=== PATIENT | female | born 1990 | race Caucasian/White ===

== ENCOUNTER 2017-03-30 11:10 | Observation (INO) | payer BC, MEDICAID ==
[~2017-03-30 11:10] MED LIST: DEXAMETHASONE SOD PHOSPHATE INJ 4 MG/1 ML VIAL ONE; GLYCOPYRROLATE INJ 0.4 MG/2 ML VIAL ONE; KETOROLAC TROMETHAMINE 60 MG/2 ML SDV ONE; LIDOCAINE 2% INJ-PF (20 MG/ML) 10 ML AMPUL ONE; NEOSTIGMINE METHYLSULFATE 10 MG/10 ML VIAL ONE; ROCURONIUM BROMIDE INJ 50 MG/5 ML VIAL IV ONE; SUCCINYLCHOLINE CHLORIDE INJ 200 MG/10 ML VIAL ONE
[2017-03-30 12:05] LABS: APPEARANCE,URINE CLEAR; BILIRUBIN,URINE NEGATIVE (NEGATIVE); GLUCOSE, URINE NEGATIVE (NEGATIVE); KETONES,URINE NEGATIVE (NEGATIVE); LEUKOCYTE ESTERASE,URINE NEGATIVE (NEGATIVE); NITRITE,URINE NEGATIVE (NEGATIVE); PROTEIN,URINE NEGATIVE (NEGATIVE); URINE SPECIFIC GRAVITY 1.012; UROBILINOGEN,URINE NEGATIVE mg/dL (<2.0)
[2017-03-30 13:59] LABS: CHLAM PCR NOT DETECTED (NOT DETECT)
--- NOTE | 2017-03-30 14:12 | RADIOLOGY REPORT (SQ) ---
EXAM DESCRIPTION: U/S OB TRANSVAGINAL W/O DOP COMPLETED DATE/TIME: 03/30/2017 1:26 pm REASON FOR STUDY: and bleeding, pelvic pain COMPARISON: None. TECHNIQUE: Transvaginal static and realtime grayscale images acquired of the pelvis. Additional gwen cted spectral and color Doppler images recorded. All images stored on PACs. bHCG: Not available. LIMITATIONS: None. FINDINGS: FETUS: No intrauterine gestation is identified. There is an irregular echogenic area per ipherally in the right ovary the size of which would suggest a gestational 5 weeks 6 days. UTERUS: No masses. No anomalies. CERVICAL LENGTH: Not measured. Closed. RIGHT ADNEXA: There is an 11 x 9 mm thick-walled structure adjacent to the right ovary with what appe ars to represent a pole within it. No adnexal free fluid. No adnexal masses. LEFT ADNEXA: Not identified. No adnexal free fluid. No adnexal masses. FREE FLUID: None. OTHER: No other significant finding. IMPRESSION: 1. There is no intrauterine gestation. 2. There is a structure associated with the right ovary that may represent ectopic of abou t 5 weeks 6 days gestation. TECHNICAL DOCUMENTATION: JOB ID: [id number] [employer]- All Rights Reserved
--- NOTE | 2017-03-30 14:53 | ER Document Report ---
ED GI/ - General Chief Complaint: Abdominal Pain Stated Complaint: ABDOMINAL PAIN Time Seen by Provider: 03/30/17 11:30 Mode of Arrival: Ambulatory Information source: Patient Notes: Patient is a 26-year-old approximately 6 weeks who presents to the ER today for lower pelvic pain. Patient reports some bleeding that began today,That she thinks is in her urine, She states she noticed on the toilet paper. Patient denies any blood clots. The pain is worse on the right side.she denies any abnormal vaginal discharge, fever, chills. TRAVEL OUTSIDE OF THE [place] IN LAST 30 DAYS: No - Related Data Allergies/Adverse Reactions: amoxicillin [Amoxicillin] Allergy (Intermediate, Verified 03/30/17 11:14) Urticaria Penicillins Allergy (Intermediate, Verified 03/30/17 11:14) Urticaria Home Medications: Current Home Medications Doxylamine Succinate/Vit B6 [Diclegis Dr 10-10 mg Tablet] 1 each PO DAILY [History] Vit/Iron Fum/Folic AC [ Tablet] 1 each PO DAILY 03/30/17 [ History] Past Medical History - General Information source: Patient - Social History Smoking Status: Never Smoker Chew tobacco use (# tins/day): No Frequency of alcohol use: None Drug Abuse: None Renal/ Medical History: Reports: Hx Kidney Stones. Denies: Hx Peritoneal Dialysis Surgical Hx: Negative - Immunizations Hx Diphtheria, Pertussis, Tetanus Vaccination: Yes Review of Systems - Review of Systems Constitutional: No symptoms reported EENT: No symptoms reported Cardiovascular: No symptoms reported Respiratory: No symptoms reported Gastrointestinal: No symptoms reported Genitourinary: No symptoms reported Female Genitourinary: See HPI Musculoskeletal: No symptoms reported Skin: No symptoms reported Hematologic/Lymphatic: No symptoms reported Neurological/Psychological: No symptoms reported Physical Exam - Vital signs Vitals: Temp Pulse Resp BP Pulse Ox 99.5 F 104 H 18 144/80 H 100 03/30/17 11:14 03/30/17 11:14 03/30/17 11:14 03/30/17 11:14 03/30/17 11:14 - Notes Notes: PHYSICAL EXAMINATION: GENERAL: Well-appearing and in no acute distress. HEAD: Atraumatic, normocephalic. EYES: Pupils equal round and reactive to light, extraocular movements intact, sclera anicteric, conjunctiva are normal. NECK: Normal range of motion, supple without lymphadenopathy LUNGS: CTAB and equal. No wheezes rales or rhonchi. HEART: Regular rate and rhythm without murmurs ABDOMEN: Soft, mild right lower quadrant, suprapubic tenderness. No guarding, no rebound BACK: no vertebral tenderness, normal ROM GI/: no CVA tenderness pelvic: white discharge in vaginal canal, no bleeding, closed cervix EXTREMITIES: Normal range of motion, no pitting edema. No cyanosis. NEUROLOGICAL: Cranial nerves grossly intact. Normal sensory/motor exams. PSYCH: Normal mood, normal affect. SKIN: Warm, Dry, normal turgor, no rashes or lesions noted Course - Re-evaluation Re-evalutation: 03/30/17 14:51 Transvaginal ultrasound reports a gestation with a pole noted at outside the right adnexa, likely ectopic, Dr. Resendiz, DIRECTOR OF [employer] on-call has come down and evaluated the patient and patient has opted for surgery today. HCG was over 4000. 03/30/17 14:52 - Vital Signs Vital signs: Temp Pulse Resp BP Pulse Ox 99.5 F 104 H 18 144/80 H 100 03/30/17 11:14 03/30/17 11:14 03/30/17 11:14 03/30/17 11:14 03/30/17 11:14 - Laboratory Result Diagrams: 03/30/17 15:19 03/30/17 15:19 Laboratory results interpreted by me: 03/30/17 03/30/17 03/30/17 11:39 13:20 15:19 WBC 11.4 H Absolute Neutrophils 8.5 H Carbon Dioxide Creatinine Beta HCG, Quant 4796.10 H Urine Blood MODERATE H Urine HCG, Qual POSITIVE H 03/30/17 15:19 WBC Absolute Neutrophils Carbon Dioxide 21 L Creatinine 0.50 L Beta HCG, Quant Urine Blood Urine HCG, Qual Critical Care Note - Critical Care Note Total time excluding time spent on procedures (mins): 37 - 37 minutes spent in critical care time with patient, consulted with attending, speaking with family , placing orders and evaluating tests and labs. Discharge - Discharge Clinical Impression: Ectopic without intrauterine Qualifiers: Location of ectopic : unspecified location Qualified Code(s): O00.90 - Unspecified ectopic without intrauterine Condition: Stable Disposition: ADMITTED INPATIENT Admitting Provider: [facility] Admitted: OR
[2017-03-30] MEDS ORDERED: FENTANYL CITRATE INJ/PF 100 MCG/2 ML AMPUL ONE ×2 (15:25→15:26)
[2017-03-30] MEDS ORDERED: MIDAZOLAM 2 MG/2 ML INJ ONE (15:26)
[2017-03-30] MEDS ORDERED: PROPOFOL INJ 200 MG/20 ML VIAL IV ONE (15:27)
[2017-03-30] MEDS ORDERED: HYDROMORPHONE HCL INJ/PF 2 MG/ML AMPULE ONE ×2 (15:27→17:57)
[2017-03-30 15:32] LABS: ABSOLUTE BASOPHILS # (AUTO) 0.1 10^3/uL (0.0-0.2); ABSOLUTE EOSINOPHILS # (AUTO) 0.1 10^3/uL (0.0-0.6); ABSOLUTE LYMPHOCYTES (AUTO) 2.2 10^3/uL (0.5-4.7); ABSOLUTE MONOCYTES (AUTO) 0.5 10^3/uL (0.1-1.4); ABSOLUTE NEUT (AUTO) 8.5 10^3/uL (1.7-8.2); BASOPHILS % (AUTO) 0.6 % (0-2); EOSINOPHILS % (AUTO) 0.6 % (0-6); HEMATOCRIT 43.6 % (36.0-47.0); HGB HCT DIFFERENCE 1.4; LYMPHOCYTES % (AUTO) 19.6 % (13-45); MEAN CORPUSCULAR HEMOGLOBIN 30.1 pg (27.0-33.4); MEAN CORPUSCULAR HGB CONC 34.4 g/dL (32.0-36.0); MEAN CORPUSCULAR VOLUME 88 fl (80-97); MONOCYTES % (AUTO) 4.6 % (3-13); RED BLOOD COUNT 4.97 10^6/uL (3.72-5.28); RED CELL DISTRIBUTION WIDTH 12.4 % (11.5-14.0); SEGMENTED NEUTROPHILS % (AUTO) 74.6 % (42-78); WHITE BLOOD COUNT 11.4 10^3/uL (4.0-10.5)
[2017-03-30] MEDS ORDERED: BUPIVACAINE HCL 0.25 % INJ/PF (2.5 MG/1 ML) 30 ML VIAL ONE (15:38)
[2017-03-30 15:55] LABS: ALANINE AMINOTRANSFERASE 30 U/L (9-52); ALBUMIN 4.3 g/dL (3.5-5.0); ALKALINE PHOSPHATASE 76 U/L (38-126); ANION GAP 11 (5-19); ASPARTATE AMINO TRANSFERASE 19 U/L (14-36); BILIRUBIN,DIRECT 0.3 mg/dL (0.0-0.4); BILIRUBIN,TOTAL 0.6 mg/dL (0.2-1.3); BLOOD UREA NITROGEN 8 mg/dL (7-20); CALCIUM 9.5 mg/dL (8.4-10.2); CARBON DIOXIDE 21 mmol/L (22-30); CHLORIDE 107 mmol/L (98-107); GLUCOSE 91 mg/dL (75-110); SODIUM 138.8 mmol/L (137-145); TOTAL PROTEIN 7.3 g/dL (6.3-8.2)
[2017-03-30] MEDS ORDERED: CEFAZOLIN INJ 1 GM VIAL ONE (15:58)
[2017-03-30] MEDS ORDERED: MEPERIDINE HCL/PF INJ 25 MG/1 ML DISP.SYRIN IV PRN (16:45)
[2017-03-30] MEDS ORDERED: PROMETHAZINE HCL INJ 25 MG/1 ML VIAL IV PRN (16:45)
[2017-03-30] MEDS ORDERED: DIPHENHYDRAMINE HCL 50 MG/ML VIAL IV PRN (16:45)
[2017-03-30] MEDS ORDERED: FENTANYL CITRATE INJ/PF 100 MCG/2 ML AMPUL IV PRN ×3 (16:45)
[2017-03-30] MEDS ORDERED: MORPHINE SULFATE 10 MG/ML INJ IV PRN (16:45)
[2017-03-30] MEDS ORDERED: ACETAMINOPHEN 100 ML IV ONE (17:29)
[2017-03-30] MEDS: FENTANYL CITRATE INJ/PF 100 MCG/2 ML AMPUL ONE ×2 (17:30→17:35)
[2017-03-30] MEDS ORDERED: OXYCODONE-ACETAMINOPHEN 5-325 MG TABLET PO PRN (18:02)
[2017-03-30] MEDS ORDERED: ONDANSETRON HCL INJ/PF 4 MG/2 ML SDV IV PRN (18:03)
[2017-03-30] MEDS ORDERED: DIPHENHYDRAMINE HCL 50 MG/ML VIAL ONE (18:08)
[2017-03-30] MEDS: DOXYCYCLINE HYCLATE 100 MG TABLET PO SCH (21:34)
[2017-03-30] MEDS: IBUPROFEN 800 MG TABLET PO PRN (21:35)
[2017-03-31] MEDS: RINGERS SOLUTION,LACTATED 1,000 ML IV PRN ×2 (01:43→09:40)
[2017-03-31] MEDS ORDERED: OXYCODONE-ACETAMINOPHEN 5-325 MG TABLET ONE (01:43)
[2017-03-31] MEDS ORDERED: OXYCODONE-ACETAMINOPHEN 5-325 MG TABLET PO ONE (01:45)
[2017-03-31] MEDS: OXYCODONE-ACETAMINOPHEN 5-325 MG TABLET PO PRN ×2 (07:30→16:22)
[2017-03-31] MEDS: IBUPROFEN 800 MG TABLET PO PRN (07:31)
[2017-03-31] MEDS ORDERED: SENNOSIDES/DOCUSATE 8.6-50 MG 1 EACH TABLET PO SCH (10:00)
[2017-03-31] MEDS: DOXYCYCLINE HYCLATE 100 MG TABLET PO SCH (11:25)
--- NOTE | 2017-03-31 14:31 | OPERATIVE REPORT E ---
Operative Report NAME: SRINIVAS TINOCO : 1990 AGE: 26Y DATE OF SURGERY: 03/30/2017 ROOM: 212 PREOPERATIVE DIAGNOSIS: Ectopic . POSTOPERATIVE DIAGNOSIS: Suspected failed intrauterine ; no evidence of ectopic. OPERATION: Diagnostic laparoscopy with D and C. SURGEON: BASHIR POTTER M.D. ANESTHESIA: General endotracheal. INTRAOPERATIVE CONSULT: With Dr. Osborn. ESTIMATED BLOOD LOSS: 5 mL. TISSUE REMOVED OR ALTERED: Specimen to pathology: Endometrial curettings. FINDINGS: Normal-appearing fallopian tubes bilaterally. The right ovary had what appeared to be a corpus luteum cyst. However, it appeared to have a slightly yellowish hue and did not appear to be an ovarian ectopic. There was a small amount of tissue in the uterine cavity. The cervix had been closed at the onset of surgery. DESCRIPTION OF PROCEDURE: After discussing risks, benefits, and alternatives of the procedure and obtaining informed consent, the patient was taken to the operating room where general anesthesia was achieved. Right arm was tucked, and she was positioned in the dorsal lithotomy position. She was prepped and draped in a standard fashion. Bladder was drained via in-and-out catheterization. Speculum was placed in the vagina and a Hulka uterine manipulator placed. Next, attention was turned to the patient's abdomen. The inferior aspect of the umbilicus was grasped with Allis's and injected with 0.25% Marcaine for local anesthesia. A 10 mm skin incision was made. A Garrick 10 mm trocar was placed and the balloon on that inflated to help maintain pneumoperitoneum. The abdomen was insufflated, and the patient was placed in Trendelenburg. A right lower quadrant trocar was placed after pre-medicating the trocar site with 0.25% Marcaine. This was a 5 mm trocar, and it was placed under direct visualization. The pelvis was surveyed with the findings noted. There had been expected to be a right adnexal ectopic, and when this was not evident, the ultrasound was reviewed and Dr. Osborn called to the OR. In the meantime, I de-sulfated the abdomen and removed the Hulka tenaculum. The speculum was placed, and cervix was serially dilated to allow for passage of a small curette. Endometrial cavity was curetted until it felt clean. The specimen will be sent for pathology. The speculum was removed after placing the Hulka uterine manipulator. Attention was turned back to the abdomen. The abdomen was insufflated and the patient again placed in Trendelenburg. The abdomen was again surveyed and again no ectopic noted. The decision was made to follow the patient on observation status postoperatively and repeat quantitative hCG in the morning. The right lower quadrant trocar was removed under direct visualization. The abdomen was de-sulfated and the umbilical port removed. The umbilical fascial site was closed with #0-Vicryl in an interrupted fashion. The skin incisions were closed with 3-0 Monocryl in a subcuticular fashion. An OpSite was placed over the umbilical incision and Dermabond over the right lower quadrant incision. The Hulka uterine manipulator was removed, and the patient was taken out of dorsal lithotomy. She was awakened from anesthesia and taken to recovery in stable condition. All sponge, needle, lap, and instrument counts were correct x2. DICTATING PHYSICIAN: BASHIR POTTER M.D. [id number] PHY#: [id number] ID: [id number] JOB#: [id number] ACCT: [id number] cc:BASHIR POTTER M.D. >
--- NOTE | 2017-03-31 18:55 | PDOC PROGRESS REPORT ---
Subjective Progress Note for:: 03/31/17 Subjective:: follow up with BHCG results. HCG has increased once more to same level as prior to laparoscope. discussed with patient and that this is very likely an ectopic or less likely GTD. Physical Exam - Physical Exam Vital Signs: Temp Pulse Resp BP Pulse Ox 98.3 F 90 16 115/53 L 98 03/31/17 11:05 03/31/17 11:05 03/31/17 11:05 03/31/17 11:05 03/31/17 11:05 Intake & Output 03/30/17 03/31/17 04/01/17 06:59 06:59 06:59 Intake Total 400 Output Total 300 Balance 100 General appearance: PRESENT: no acute distress, cooperative GI/Abdominal exam: PRESENT: soft, tenderness Result Impressions: Obstetrics Ultrasound 03/30/17 12:13 IMPRESSION: 1. There is no intrauterine gestation. 2. There is a structure associated with the right ovary that may represent ectopic of about 5 weeks 6 days gestation. Assessment & Plan - Diagnosis (1) Ectopic without intrauterine Qualifiers: Location of ectopic : unspecified location Qualified Code(s): O00.90 - Unspecified ectopic without intrauterine - Plan Summary Plan Summary: will give Methotrexate today and follow up in office for second dose on Tuesday as well as repeat labs. discussed with patient and regarding treatment plan and they agree with plan. Voice understanding of difficulty with definitive diagnoses. Dr. Resendiz also notified of results and discussed plan. Will proceed with MTX and discharge.
--- NOTE | 2017-03-31 19:01 | PDOC DISCHARGE SUMMARY ---
General - Admit/Disc Date/PCP Admission Date/Primary Care Provider: 03/30/17 17:30 CORINE NIELSEN MD Discharge Date: 03/31/17 - Additional Information Resuscitation Status: Full Code Home Medications: Doxylamine Succinate/Vit B6 [Kwame Holland 10-10 mg Tablet] 1 each PO DAILY Vit/Iron Fum/Folic AC [ Tablet] 1 each PO DAILY 03/30/17 History of Present Illness History of Present Illness: SRINIVAS TINOCO is a 26 year old female Hospital Course Hospital Course: please see progress notes for details. Physical Exam - Physical Exam Vital Signs: Temp Pulse Resp BP Pulse Ox 98.3 F 90 16 115/53 L 98 03/31/17 11:05 03/31/17 11:05 03/31/17 11:05 03/31/17 11:05 03/31/17 11:05 Intake & Output 03/30/17 03/31/17 04/01/17 06:59 06:59 06:59 Intake Total 400 Output Total 300 Balance 100 Result Impressions: Obstetrics Ultrasound 03/30/17 12:13 IMPRESSION: 1. There is no intrauterine gestation. 2. There is a structure associated with the right ovary that may represent ectopic of about 5 weeks 6 days gestation. Plan Discharge Plan: methotrexate dose calculated 105 mg given tonight. Will give second dose and repeat labs on Tuesday afternoon in office. Patient given strict pain/fever/ bleeding precautions. Time Spent: Less than 30 Minutes
[2017-03-31] MEDS ORDERED: DISPOSABLE IM ONE (20:00)
[2017-03-31] MEDS ORDERED: METHOTREXATE SODIUM IM ONE (20:00)
[2017-03-31 21:40] VITALS: BP 117/68
== END 2017-03-31 20:55 | disposition home or self-care (01) ==
LOC: ER 11:10 → UNDOADMIN 15:21 → EH 15:21 → INTOOBSV 17:30 → EH 17:30 → 2N 18:25
PROVIDERS: ADMIT Specialist; ATTEND Specialist
PROC: 10J24ZZ Inspection of Products of Conception, Ectopic, Percutaneous Endoscopic Approach (ICD-10-PCS; 2017-03-30)
PROC: 0UDB7ZX Extraction of Endometrium, Via Natural or Artificial Opening, Diagnostic (ICD-10-PCS; principal; 2017-03-30 16:00)
DX: O00.90 Unspecified ectopic pregnancy without intrauterine pregnancy (principal); O99.331 Smoking (tobacco) complicating pregnancy, first trimester; F17.200 Nicotine dependence, unspecified, uncomplicated; Z87.442 Personal history of urinary calculi
CPT/HCPCS: 99291; 86900; 86901; 36415 ×2; 87210; 86850; 84702 ×2; 85025; 81025; 80053; 81001; 87491; 87591; 88305 ×2; 76817; 58120; 49320; G0378 ×6; J2250; J0690; J3490 ×3; J1100; J1200; J1885; J3010; J9260; J1170; J0330; J7120; J2704; J0131; 840